=== PATIENT | female | born 1980 | race Two or more races ===

== ENCOUNTER 2021-05-12 10:26 | Emergency (ER) | payer SELFPAY ==
[~2021-05-12] VITALS: Ht 152.4 cm; Wt 56.8 kg
[2021-05-12 10:33] VITALS: BP 140/96
[2021-05-12] MEDS ORDERED: KETOROLAC 15 MG/ML VIAL. IM ONE (10:45)
--- NOTE | 2021-05-12 11:17 | PHYS DOC ---
Past Medical History Past Surgical History: No Surgical History Smoking Status: Never Smoker Alcohol Use: None General Adult EDM: Chief Complaint: TOE PROBLEM HPI: HPI: Patient is a 40 year old female who presents with left foot pain. Patient states she was walking around her home, when she tripped trying to avoid stepping on her cat 5 days ago. She reports that she has taped her third and fourth digit on the right foot together, she has been taking dual action Advil, icing her foot, and using Epsom salt soaks. 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 She had difficulty sleeping last night due to her pain. She states that there was significant swelling below the fourth digit on the dorsal aspect of her foot, but it has significantly improved. She denies any other trauma or pain. She has no other complaints at this time. Review of Systems: Review of Systems: Constitutional: Denies fever or chills. Respiratory: Denies cough or shortness of breath. Cardiovascular: Denies chest pain or edema. Musculoskeletal: See HPI Integument: Denies laceration, abrasion, puncture wound, rash. Neurologic: Denies headache, focal weakness or sensory changes. Heart Score: C/O Chest Pain: No Current Medications: Current Medications Medications (Trade) Dose Ordered Sig/Juana Start Time Stop Time Status Last Admin Dose Admin Ketorolac Tromethamine (Toradol 15mg Vial) 15 mg 1X ONCE 05/12/21 10:45 05/12/21 10:47 DC 05/12/21 11:00 15 MG Allergies: Allergies: Allergies Coded Allergies Type Severity Reaction Last Updated Verified No Known Drug Allergies 05/12/21 No Physical Exam: PE: Constitutional: Well developed, well nourished, no acute distress, non-toxic appearance. [] HENT: Normocephalic, atraumatic, bilateral external ears normal, oropharynx moist, no oral exudates, nose normal. [] Eyes: PERRLA, EOMI, conjunctiva normal, no discharge. [] Neck: Normal range of motion, no tenderness, supple, no stridor. [] Cardiovascular:Heart rate regular rhythm, no murmur [] Lungs & Thorax: Bilateral breath sounds clear to auscultation [] Abdomen: Bowel sounds normal, soft, no tenderness, no masses, no pulsatile masses. [] Skin: Warm, dry, no erythema, no rash. [] Back: No tenderness, no CVA tenderness. [] Extremities: No tenderness, no cyanosis, no clubbing, ROM intact, no edema. [] Neurologic: Alert and oriented X 3, normal motor function, normal sensory function, no focal deficits noted. [] Psychologic: Affect normal, judgement normal, mood normal. [] Current Patient Data: Vital Signs: Vital Signs Date Time Temp Pulse Resp B/P (MAP) Pulse Ox O2 Delivery O2 Flow Rate FiO2 05/12/21 10:33 97.9 100 16 140/96 (111) 99 Room Air 97.9 Radiology/Procedures: Radiology/Procedures: Dr. Tompkins did an initial read of xrays and does not see any acute process or fractures to the phalanges or metatarsals. PROCEDURE: FOOT LEFT 3V Exam: 4 nonweightbearing views of the left foot Indication: Reason: fourth digit/metatarsal pain / Spl. Instructions: / History: . Comparison: Unavailable. Findings: No acute or subacute fracture. Joint spaces are preserved. Normal alignment is maintained. There is no evidence of significant degenerative changes. Bone mineralization is normal. Soft tissues are unremarkable. Impression: Acute osseous findings of the left foot. Electronically signed by: Yosi Ward DO (05/12/2021 11:40 AM) [id number] Course & Med Decision Making: Course & Med Decision Making Pertinent Labs and Imaging studies reviewed. (See chart for details) X-rays of the left foot were ordered to determine if there are any fractures present to the phalanges or metatarsals. Initial read of x-ray imaging by Dr. Tompkins does not show any fracture in the left foot. Patient's foot will be wrapped in Macario bandage and she will be given RICE instructions. She will be provided with a work note so that she may rest and recover. Dragon Disclaimer: Andrea Disclaimer: This electronic medical record was generated, in whole or in part, using a voice recognition dictation system. Departure Departure Impression: Primary Impression: Contusion of left foot, initial encounter Disposition: HOME / SELF CARE / HOMELESS Condition: STABLE Referrals: SHARONDA CRUZ DO (PCP) Patient Instructions: RICE - Routine Care for Injuries, Neij-vq-Pcut Additional Instructions: You may continue to use ibuprofen at home for pain relief and to minimize swelling. Return to the emergency department if you notice any signs of compartment syndrome including cool/pale skin, numbness and tingling to the foot, loss of pulses. ALLEY MACARIO May 12, 2021 11:17
--- NOTE | 2021-05-12 11:43 | RAD ---
Exam: 4 nonweightbearing views of the left foot Indication: Reason: fourth digit/metatarsal pain / Spl. Instructions: / History: . Comparison: Unavailable. Findings: No acute or subacute fracture. Joint spaces are preserved. Normal alignment is maintained. There is n o evidence of significant degenerative changes. Bone mineralization is normal. Soft tissues are unrem arkable. Impression: Acute osseous findings of the left foot. Electronically signed by: Yosi Ward DO (05/12/2021 11:40 AM) [id number]
== END 2021-05-12 11:45 | disposition home or self-care (01) ==
LOC: ER 10:26
DX: S90.32XA Contusion of left foot, initial encounter (principal); W22.8XXA Striking against or struck by other objects, initial encounter; Y93.01 Activity, walking, marching and hiking; Y92.89 Other specified places as the place of occurrence of the external cause; Y99.8 Other external cause status
CPT/HCPCS: 73630; 96372; 99284; J1885